=== PATIENT | male | born 1955 | race Caucasian/White ===

== ENCOUNTER 2017-10-13 13:29 | Emergency (ER) | payer MEDICARE, MEDICAID ==
[~2017-10-13] VITALS: Ht 188 cm; Wt 81.6 kg
[2017-10-13] MEDS ORDERED: ABILIFY15 MG ORAL (13:42)
[2017-10-13] MEDS ORDERED: CALCIUM 500 +1 EAC6 PO (13:42)
[2017-10-13] MEDS ORDERED: DOCUSATE SODIU100 MG ORAL (13:42)
[2017-10-13] MEDS ORDERED: BENADRYL ALLERG25 M1 PO (13:42)
[2017-10-13] MEDS ORDERED: BACLOFEN10 MG ORAL (13:42)
[2017-10-13] MEDS ORDERED: DULCOLAX10 MG RC (13:43)
[2017-10-13] MEDS ORDERED: ASPIRIN325 MG ORAL (13:43)
[2017-10-13] MEDS ORDERED: FLOMAX0.4 MG ORAL (13:43)
[2017-10-13] MEDS ORDERED: LAMICTAL25 MG ORAL (13:43)
[2017-10-13] MEDS ORDERED: MULTIVITAMINS1 EAC8 ORAL (13:46)
[2017-10-13] MEDS ORDERED: FUROSEMIDE40 MG ORAL (13:46)
[2017-10-13] MEDS ORDERED: ATORVASTATIN CA10 MG ORAL (13:46)
[2017-10-13] MEDS ORDERED: LEVOTHYROXINE50 MCG ORAL (13:46)
[2017-10-13] MEDS ORDERED: LORATADINE10 M3 PO (13:46)
[2017-10-13] MEDS ORDERED: MAALOX ADVANCE770 ML PO (13:46)
[2017-10-13] MEDS ORDERED: MILK OF MA400 MG/51 ORAL (13:46)
[2017-10-13 13:47] VITALS: BP 97/63
--- NOTE | 2017-10-13 14:31 | Diagnostic Imaging Report ---
Indication: Shortness of breath Technique: XRAY Chest 1v Comparison: None Findings: Limited exam with patient rotated to the right. Heart size within normal limits. There is slight interstitial prominence/opacification. There is streaky left basilar opacity. No large pleural effusion. No pneumothorax. There is a fracture deformity of the right posterior fifth rib. There is scoliosis and degenerative change of the spine. Impression: Mild nonspecific interstitial opacification. Mild fluid overload or interstitial pneumonia cannot entirely be excluded. Clinical correlation and follow-up exam recommended. Fracture deformity of the posterior right fifth rib of indeterminate age, possibly subacute. No pneumothorax.
[2017-10-13 14:36] LABS: HEMOGLOBIN 15.3 G/DL (14.2-18.0); MEAN CORPUSCULAR VOLUME 87 FL (80-99); PLATELET COUNT 98 K/UL (150-450); RED BLOOD COUNT 5.38 M/UL (4.70-6.10); RED CELL DISTRIBUTION WIDTH 13.4 % (11.6-14.8); WHITE BLOOD COUNT 10.9 K/UL (4.8-10.8)
[2017-10-13 15:46] LABS: ANION GAP 15 mmol/L (5-15); BLOOD UREA NITROGEN 21 mg/dL (7-18); CALCIUM 8.7 MG/DL (8.5-10.1); CARBON DIOXIDE 21 MMOL/L (21-32); CHLORIDE 105 MMOL/L (98-107); CREATININE 1.2 MG/DL (0.55-1.30); POTASSIUM 3.2 MMOL/L (3.5-5.1); SODIUM 141 MMOL/L (136-145)
[2017-10-13 15:59] LABS: ALANINE AMINOTRANSFERASE 34 U/L (12-78); ALBUMIN 3.9 G/DL (3.4-5.0); ALBUMIN/GLOBULIN RATIO 1.2 (1.0-2.7); ALKALINE PHOSPHATASE 94 U/L (46-116); ASPARTATE AMINO TRANSFERASE 25 U/L (15-37); BILIRUBIN,TOTAL 0.4 MG/DL (0.2-1.0); CKMB 0.5 NG/ML (0.0-3.6); CREATINE KINASE 49 U/L (26-308)
--- NOTE | 2017-10-13 18:36 | Emergency Room Report ---
History of Present Illness General Chief Complaint: Choking Source: Medical Record Present Illness HPI This patient presents from a alf facility. Apparently he choked while eating a brownie. EMS were called and on arrival he was choking. He did become unresponsive. EMS was able to remove the brownie and he recovered fully. He denies shortness of breath or chest pain. He denies sore throat or neck pain. He has no other complaints. He does have multiple chronic medical conditions to include COPD, dementia, failure to thrive, CVA. Allergies: Coded Allergies: BUPIVACAINE (Verified Allergy, Unknown, 10/13/17) HALOPERIDOL (Verified Allergy, Unknown, 10/13/17) TRIHEXYPHENIDYL (Verified Allergy, Unknown, 10/13/17) Patient History Past Medical History: see triage record, CAD, CHF, COPD, CVA/TIA, dementia, seizures Social History: Denies: smoking, alcohol use, drug use Reviewed Nursing Documentation: PMH: Agreed, PSxH: Agreed Nursing Documentation-PMH Past Medical History: No History, Except For Hx Cardiac Problems: Yes - heart failure Hx COPD: Yes Hx Neurological Problems: Yes - muscle weakness Hx Cerebrovascular Accident: Yes Hx Seizures: Yes Review of Systems All Other Systems: negative except mentioned in HPI Physical Exam Vital Signs Date Time Temp Pulse Resp B/P (MAP) Pulse Ox O2 Delivery O2 Flow Rate FiO2 10/13/17 13:33 97.9 97 18 97/63 90 Room Air Sp02 EP Interpretation: reviewed, normal General Appearance: no apparent distress, alert, GCS 15, non-toxic Head: normocephalic, atraumatic Eyes: bilateral eye normal inspection, bilateral eye PERRL ENT: hearing grossly normal, normal pharynx, no angioedema, normal voice Neck: full range of motion, supple/symm/no masses Respiratory: chest non-tender, lungs clear, normal breath sounds, no respiratory distress, no retraction, no accessory muscle use, speaking full sentences Cardiovascular #1: regular rate, rhythm, no edema Gastrointestinal: normal bowel sounds, non tender, soft, non-distended, no guarding, no rebound Rectal: deferred Musculoskeletal: normal range of motion, non-tender Neurologic: alert, responsive, motor strength/tone normal, sensory intact, speech normal Psychiatric: mood/affect normal, no suicidal/homicidal ideation Skin: normal color, no rash, warm/dry, well hydrated Medical Decision Making Diagnostic Impression: Primary Impression: Choking episode ER Course This patient presented status post choking episode. He had completely recovered by the time my evaluation. He was observed here in the emergency department and did not develop any further symptoms. He had no respiratory distress or chest pain. He is at his baseline mental status. He has no complaints and laboratory workup was noncontributory. Chest x-ray was non- contributory. The patient was returned to the alf facility for further evaluation, monitoring and treatment by the primary care physician. Laboratory Tests Test 10/13/17 14:13 White Blood Count 10.9 K/UL (4.8-10.8) H Red Blood Count 5.38 M/UL (4.70-6.10) Hemoglobin 15.3 G/DL (14.2-18.0) Hematocrit 47.0 % (42.0-52.0) Mean Corpuscular Volume 87 FL (80-99) Mean Corpuscular Hemoglobin 28.5 PG (27.0-31.0) Mean Corpuscular Hemoglobin Concent 32.6 G/DL (32.0-36.0) Red Cell Distribution Width 13.4 % (11.6-14.8) Platelet Count 98 K/UL (150-450) L Mean Platelet Volume 8.6 FL (6.5-10.1) Neutrophils (%) (Auto) % (45.0-75.0) Lymphocytes (%) (Auto) % (20.0-45.0) Monocytes (%) (Auto) % (1.0-10.0) Eosinophils (%) (Auto) % (0.0-3.0) Basophils (%) (Auto) % (0.0-2.0) Differential Total Cells Counted 100 Neutrophils % (Manual) 87 % (45-75) H Lymphocytes % (Manual) 8 % (20-45) L Monocytes % (Manual) 2 % (1-10) Eosinophils % (Manual) 3 % (0-3) Basophils % (Manual) 0 % (0-2) Band Neutrophils 0 % (0-8) Platelet Estimate Decreased L Platelet Morphology Normal Red Blood Cell Morphology Normal Sodium Level 141 MMOL/L (136-145) Potassium Level 3.2 MMOL/L (3.5-5.1) L Chloride Level 105 MMOL/L (98-107) Carbon Dioxide Level 21 MMOL/L (21-32) Anion Gap 15 mmol/L (5-15) Blood Urea Nitrogen 21 mg/dL (7-18) H Creatinine 1.2 MG/DL (0.55-1.30) Estimate Glomerular Filtration Rate > 60 mL/min (>60) Glucose Level 161 MG/DL (74-106) H Calcium Level 8.7 MG/DL (8.5-10.1) Total Bilirubin 0.4 MG/DL (0.2-1.0) Aspartate Amino Transferase (AST) 25 U/L (15-37) Alanine Aminotransferase (ALT) 34 U/L (12-78) Alkaline Phosphatase 94 U/L (46-116) Total Creatine Kinase 49 U/L (26-308) Creatine Kinase MB 0.5 NG/ML (0.0-3.6) Creatine Kinase MB Relative Index 1.0 Troponin I 0.001 ng/mL (0.000-0.056) Total Protein 7.2 G/DL (6.4-8.2) Albumin 3.9 G/DL (3.4-5.0) Globulin 3.3 g/dL Albumin/Globulin Ratio 1.2 (1.0-2.7) EKG Diagnostic Results Rate: normal Rhythm: NSR ST Segments: no acute changes Other Impression LAFB Rhythm Strip Diag. Results EP Interpretation: yes Rate: 80's Rhythm: NSR, no PVC's, no ectopy Chest X-Ray Diagnostic Results Chest X-Ray Diagnostic Results : Chest X-Ray Ordered: Yes # of Views/Limited/Complete: 1 View Indication: Other - choking episode EP Interpretation: No Interpretation: no consolidation, no effusion, no pneumothorax, no acute cardiopulmonary disease Impression: Other - mild interstitial prominence. poor inspiration and positioning. Electronically Signed by: Marcellus Last Vital Signs Date Time Temp Pulse Resp B/P (MAP) Pulse Ox O2 Delivery O2 Flow Rate FiO2 10/13/17 13:48 97 18 Room Air 10/13/17 13:47 97.9 97/63 90 Status: improved Disposition: HOME, SELF-CARE Condition: Improved Referrals: NON PHYSICIAN (PCP) Patient Instructions: Brooke Majano MONA M D.O. Oct 13, 2017 18:35
[2017-10-13 19:15] VITALS: BP_SYST 102; BP_SYST 90; BP_DIAS 50; BP_DIAS 69
[2017-10-13 23:40] VITALS: BP 102/54
[2017-10-14 00:15] VITALS: BP 102/54
== END 2017-10-14 00:40 | disposition home or self-care (01) ==
LOC: EDBD 13:29 → EMR 13:39
DX: R09.89 Other specified symptoms and signs involving the circulatory and respiratory systems (principal); J44.9 Chronic obstructive pulmonary disease, unspecified; Z86.73 Personal history of transient ischemic attack (TIA), and cerebral infarction without residual deficits; I25.10 Atherosclerotic heart disease of native coronary artery without angina pectoris; I50.9 Heart failure, unspecified; F03.90 Unspecified dementia, unspecified severity, without behavioral disturbance, psychotic disturbance, mood disturbance, and anxiety
CPT/HCPCS: 36415; 71045; 80053; 82550; 82553; 84484; 85007; 85025; 93005; 96360; 99284